=== PATIENT | male | born 1970 | race African-American/Black ===

== ENCOUNTER 2018-02-19 18:12 | Emergency (ER) | payer MEDICARE, MEDICAID ==
[~2018-02-19] VITALS: Ht 175.3 cm; Wt 89.8 kg
[2018-02-19 19:09] LABS: Basophils # (auto) 0.1 uL; Basophils % (auto) 1.1 % (0.0-2.0); Eosinophils # (auto) 0.1 uL; Eosinophils % (auto) 0.8 % (0.0-7.0); Hematocrit 48.6 % (41.0-53.0); Hemoglobin 16.8 g/dL (13.5-17.5); Lymphocytes # (auto) 1.9 uL; Lymphocytes % (auto) 21.2 % (10.0-50.0); Mean Corpuscular Hemoglobin 30.5 pg (28.0-32.0); Mean Corpuscular Hgb Conc. 34.5 g/dL (32.0-36.0); Mean Corpuscular Volume 88.4 fL (80.0-100.0); Monocytes # (auto) 0.8 uL; Monocytes % (auto) 9.5 % (0.0-12.0); Neutrophils # (auto) 5.9 uL; Neutrophils % (auto) 67.4 % (37.0-80.0); Nucleated Red Blood Cells % 0.6 %; Platelet Count (auto) 175 10^3/uL (140-450); Red Blood Cells 5.49 10^6/uL (4.5-5.90); White Blood Cell 8.8 10^3/uL (4.4-10.8)
[2018-02-19 19:25] LABS: Calcium 9.4 mg/dL (8.5-10.1); Potassium 4.1 mmol/L (3.5-5.1)
[2018-02-19 19:31] LABS: Albumin 3.7 g/dL (3.4-5.0); BUN/Creatinine Ratio 7.6; Bilirubin, Total 1.3 mg/dL (0.2-1.0); Total Protein 8.6 g/dL (6.4-8.2)
[2018-02-19] MEDS ORDERED: SODIUM CHLORIDE 0.9% 1,000 ML IV ONE (23:15)
[2018-02-19] MEDS ORDERED: InsuLIN REG 1unit/0.01ml Soln (100units/ml) IV ONE (23:15)
[2018-02-20] MEDS ORDERED: cefTRIAXone 1GM/10ml IVPUSH 10 ML IV ONE (00:15)
[2018-02-20] MEDS ORDERED: VANCOMYCIN 1GM/250ML 250 ML IV ONE (00:15)
[2018-02-20 00:26] VITALS: BP 118/95
== END 2018-02-20 01:14 | disposition left against medical advice (07) ==
LOC: ER 18:12
DX: E11.65 Type 2 diabetes mellitus with hyperglycemia (principal); Z91.041 Radiographic dye allergy status
CPT/HCPCS: 36415; 80053; 82010; 82962; 85025; 96361; 96365; 96375; 99284; J1815; J3370; J7030